=== PATIENT | female | born 1950 | race Caucasian/White ===

== ENCOUNTER 2017-02-11 15:18 | Emergency (ER) | payer SELFPAY ==
[2017-02-11 15:38] VITALS: BP 141/85; PULSE 74; RESP 16; TEMP 98.4; O2SAT 96
[2017-02-11] MEDS ORDERED: OXYCODONE/APAP 5/325 TAB PO ONE (16:34)
--- NOTE | 2017-02-11 16:36 | EDPHY ---
H & P Stated Complaint: Tripped running, sustained inj to R shoulder; CMS intact to R arm Time Seen by Provider: 02/11/17 16:21 HPI/ROS: HPI: This is a 66-year-old female presents with Chief Complaint: Right shoulder injury Location: Right shoulder Quality: Injury Duration: Approximately 3-5 hours ago Signs and Symptoms: No bleeding, no radiation, no numbness, no weakness, no tingling, no LOC, + decreased range of motion, + pain Timing: Sudden, worse with use and overhead activities Severity: 8 Context: Patient is right-hand dominant, was running today on a trail and accidentally tripped on a root that was across the trail and fell directly on her right shoulder. She felt immediate pain, nonradiating, 11/27, that worsened with use especially overhead activities. Patient denies hitting her head/LOC/ neck pain. She was able to run home several miles and after several hours and the pain did not resolve she decided to come to the emergency room for further evaluation. Patient reports that she is up-to-date on her tetanus. Modifying Factors: No [id number] medications tried or ice pack applied Comment: ROS: see HPI Constitutional: No fever, no chills, no weight loss Eyes: No blurred vision Respiratory: No shortness of breath, no cough Cardiovascular: No chest pain Gastrointestinal: No nausea, no vomiting no diarrhea Genitourinary: No dysuria Extremities: No myalgias Neurologic: No weakness, no numbness Skin: No rashes Hematologic: No bruising, no bleeding MEDICAL/SURGICAL/SOCIAL HISTORY: Medical history: HTN, ANXIETY; UTI's; kidney infection Surgical history: Denies Social history: Very active lifestyle. CONSTITUTIONAL: Pleasant elderly white female who appears younger than stated age, awake and alert, no obvious distress HEENT: Atraumatic and normocephalic, PERRL, EOMI. Tympanic membranes clear. Oropharynx clear, no exudate and moist pink mucosa. Airway patent. No lymphadenopathy. No meningismus. Cardiovascular: Normal S1/S2, regular rate, regular rhythm, without murmur rub or gallop. PULMONARY/CHEST: Symmetrical and nontender. Clear to auscultation bilaterally. Good air movement. No accessory muscle usage. ABDOMEN: Soft, nondistended, nontender, no rebound, no guarding, no peritoneal signs, no masses or organomegaly. No CVAT. EXTREMITIES: 2/2 pulses, RIGHT SHOULDER: Arc test abduction to 90, abduction to 35, horizontal flexion 100, horizontal extension to 20, deltoid strength 5 /5. No pain with Neer test/Frank test (impingement). Tenderness to palpation over AC joint and SA joint. No clavicle deformity. no deformities, no clubbing, no cyanosis or edema. NEUROLOGICAL: no focal neuro deficits. GCS 15. SKIN: Warm and dry, no erythema. no rash. Good capillary refill. Source: Patient Exam Limitations: No limitations - Personal History Current Tetanus Diphtheria and Acellular Pertussis (TDAP): Yes Tetanus Vaccine Date: 2008 - Medical/Surgical History Hx Asthma: No Hx Chronic Respiratory Disease: No Hx Diabetes: No Hx Cardiac Disease: No Hx Renal Disease: No Hx Cirrhosis: No Hx Alcoholism: No Hx HIV/AIDS: No Hx Splenectomy or Spleen Trauma: No Other PMH: HTN, ANXIETY; UTI's; kidney infection - Social History Smoking Status: Former smoker Constitutional: Initial Vital Signs Temperature (C) 36.9 C 02/11/17 15:25 Heart Rate 74 02/11/17 15:25 Respiratory Rate 16 02/11/17 15:25 Blood Pressure 141/85 H 02/11/17 15:25 O2 Sat (%) 96 02/11/17 15:25 O2 Delivery Mode Room Air Allergies/Adverse Reactions: No Known Allergies Allergy (Verified 02/11/17 15:38) Home Medications: Medication Instructions Recorded LORazepam [Ativan 0.5 mg (RX)] 0.5 mg PO DAILY PRN 10/23/12 Potassium Cl [Klor-Con 10 meq (RX)] 10 meq PO DAILY 10/23/12 Triamterene/Hctz 75/50 [Maxzide 1 tab PO DAILY 10/23/12 75-50 mg Tab (RX)] Hydrocodone/Acetaminophen [Vicodin 1 each PO Q4 PRN #12 tablet 02/11/17 5-300 mg Tablet] Medical Decision Making - Diagnostics Imaging Results: Imaging Impressions Shoulder X-Ray 02/11/17 15:38 Impression: Negative. No acute fracture or evidence of AC separation. Procedures: Procedure: Splint placement. A sling was applied by the Emergency Room traffic survey technician. After application of the sling I returned and re-examined the patient. The splint was adequately immobilizing the joint and distal to the splint the patient's circulation and sensation was intact. ED Course/Re-evaluation: Right shoulder x-ray, oral medication ordered Fall accidental in nature Right shoulder x-ray reviewed via PACs with attending and shows no acute fracture/dislocation/AC joint separation No signs of neurovascular compromise/tenting of skin/compartment syndrome/ extremities and joints examined above and below area of concern and are neurovascularly intact. Placed in sling, rice therapy, Ortho follow-up for evaluation for internal derangement Differential Diagnosis: ED shoulder injury differential includes but is not limited to clavicle fracture , humeral fracture, AC joint separation, rotator cuff injury, labral injury. Departure - Departure Disposition: Home, Routine, Self-Care Clinical Impression: Internal derangement of right shoulder Right shoulder injury Qualifiers: Encounter type: initial encounter Qualified Code(s): S49.91XA - Unspecified injury of right shoulder and upper arm, initial encounter Condition: Good Instructions: Rotator Cuff Injury (ED), Shoulder Sprain (ED) Additional Instructions: Please wear sling continuously except to shower and while sleeping until pain free or seen by Orthopedics for follow-up. Take Advil every 6-8 hours with food as needed for pain and inflammation. Take Vicodin every 4 hours as needed for severe breakthrough pain. Apply ice for 30 minutes at a time; 2-3 times per day for the next 1-2 days. Follow up with Orthopedics in 5-7 days at which time they will evaluate for internal derangement and recommend with you if conservative management versus further diagnostic imaging is indicated. The x-rays obtained in the emergency department today demonstrate no evidence of an obvious fracture. Sometimes fractures are not obvious on the initial set of x-rays performed in the ED. For this reason, you should have repeat x-rays performed in 7-10 days if you are having any pain exclude the possibility of an occult fracture. Referrals: Alfonzo Pandya MD [Medical Doctor] - As per Instructions Prescriptions: Hydrocodone/Acetaminophen [Vicodin 5-300 mg Tablet] 1 each PO Q4 PRN #12 tablet PRN Reason: Pain, Severe
== END 2017-02-11 17:29 | disposition home or self-care (01) ==
DX: S49.91XA Unspecified injury of right shoulder and upper arm, initial encounter (principal); M24.811 Other specific joint derangements of right shoulder, not elsewhere classified; I10 Essential (primary) hypertension; Z87.891 Personal history of nicotine dependence; W01.0XXA Fall on same level from slipping, tripping and stumbling without subsequent striking against object, initial encounter; Y99.8 Other external cause status; Y93.02 Activity, running

== ENCOUNTER 2018-06-24 12:11 | Emergency (ER) | payer OTHER ==
--- NOTE | 2018-06-24 12:30 | EDPHY ---
General Time Seen by Provider: 06/24/18 12:30 Narrative: CLINICAL IMPRESSION: Palpitations ASSESSMENT/PLAN: Patient is a 68-year-old female with a significant history of hypertension, anxiety and insomnia who presents to the emergency department with complaints of intermittent palpitations and generally feeling unwell. Patient was placed on a cardiac technician, an ECG was obtained which revealed prolonged QTC at 580, nonspecific ST changes without evidence of acute ischemia. Patient is afebrile , not toxic appearing and in no acute distress. Troponin negative at 0.02. CBC with no evidence of leukocytosis or anemia, magnesium within normal limits, TSH normal. There were no metabolic abnormalities or evidence of acute kidney injury. There was no evidence of arrhythmia, anemia, fever, medication side effect, toxidrome, thyrotoxicosis, dehydration, or hypoglycemia. Cardiology reviewed her ECG and on their findings QT was 400 milliseconds with a QTC of 453 milliseconds. Recommendation is to initiate metoprolol 12.5 mg twice daily , her 1st dose was given in the emergency department. She will follow up with Dr. Mancia tomorrow at 2:30 a.m. for further evaluation and management. Patient was reassured by her findings in the emergency department however understands that she may need additional testing to include Holter monitor. Conservative return precautions discussed-patient will return for recurrent palpitations or elevated heart rate, chest pain, shortness of breath, near- syncope, syncope or for any other concerning symptom. Patient verbalizes understanding she is in agreement with this plan. DIFFERENTIAL DX: Differential diagnosis including but not limited to ACS, pulmonary embolism, dysrhythmia, anemia, medication side effect, toxidrome, thyrotoxicosis, dehydration, hypoglycemia. ED COURSE: 1241: Case discussed with Dr. Feliz 1257: ECG reviewed by Dr. Feliz, QTC prolonged at 580, nonspecific ST changes. 1330: Cardiology paged. 1338: Case discussed with Brenden Avila CLE[employer] AND [employer] with [facility]. They recommend metoprolol 12.5 mg twice per day. She has been scheduled for a follow -up appointment tomorrow with Dr. Mancia at 2:30 p.m.. 1405: ECG reviewed with Brenden Ramachandran. The QT interval was measured by Cardiology and found to be 400 milliseconds, QTC corrected was 453 milliseconds. No findings to suggest prolonged QT on their evaluation. Still recommend metoprolol 12.5 twice daily with follow-up tomorrow. CHIEF COMPLAINT: Palpitations HPI: Patient is a 68-year-old female with a history of hypertension, anxiety and insomnia who presents to the emergency department with complaints of intermittent palpitations and racing heart over the last 8 months which is increasing in frequency as well as generally feeling unwell today. Patient reports over the last 8 months she has had several episodes of where her heart has been racing, she normally has a heart rate in the low 60s. Yesterday she had a sudden onset of palpitations and took her heart rate at 150, this lasted for approximately 6 hr, felt mildly dizzy while her heart rate was elevated. She denies ever experiencing near syncope or syncope during any of these episodes. She has not had any further palpitations or racing heart rate since that time. She woke up this morning just generally feeling unwell. She denies any chest pain, shortness of breath or abdominal pain. She has had no fever, recent upper respiratory symptoms or cough. Appetite has been normal, she denies any nausea or vomiting. She denies any urinary symptoms to include dysuria, hematuria or increased frequency. Bowel movements have been normal and regular. She denies any recent changes in her medications. She does endorse that she is under a significant amount of stress, her adult child lives at home with severe mental health disorders. Her episodes of palpitations and elevated heart rate have always preceded by stress. She is postmenopausal, denies any irregular or abnormal vaginal bleeding. PMH: Hypertension, anxiety, insomnia Family History: PAT-mother Social History: Former cigarette smoking, denies illicit drug use REVIEW OF SYSTEMS: All other systems negative Constitutional: No fever, no chills, appetite change. Eyes: No discharge, vision change ENT: No sore throat, congestion, ear pain. Cardiovascular: Palpitations. No chest pain. Respiratory: No cough, no shortness of breath. Gastrointestinal: No abdominal pain, no vomiting, diarrhea. Genitourinary: No hematuria, dysuria, flank pain, pelvic pain. Musculoskeletal: No back pain, joint swelling, joint pain, myalgias. Skin: No rashes, color change. Neurological: Weakness. No headache, dizziness. PHYSICAL EXAM: General Appearance: Well-appearing, no acute distress. HENT: Normocephalic, atraumatic. Bilateral external ears are normal. Bilateral tympanic membranes are normal with pearly carlin reflex. Nares are clear, mucosa is pink. Oropharynx is clear, uvula is midline. There is no tonsillar enlargement or exudate. The dentition is normal. Eyes: PERRLA, no acute vision change, nystagmus, swelling, discharge, pain or photosensitivity. Conjunctiva pink, no pallor or injection Neck: Supple, nontender, no lymphadenopathy, no midline pain, FROM, no meningismus. Respiratory: There are no retractions, lungs are clear to auscultation. Cardiac: Regular rate and rhythm- heart rate 74 on my exam, no murmurs or gallops. Gastrointestinal: Abdomen is soft, nontender, bowel sounds normal, no masses/ hernia, no rigidity, guarding or focal peritoneal findings. Neurological: Alert and oriented x 3, CN 2-12 grossly intact, normal gait no ataxia, DTR's intact, normal sensation and strength Skin: Warm, dry, no rashes, no nodules on palpation. Musculoskeletal: Extremities are symmetrical, full range of motion, no tenderness, deformity, swelling, or erythema. Psychiatric: Patient is oriented X 3, there is no agitation. MEDICAL DECISION MAKING: Patient was seen independently. Secondary supervising physician at time of evaluation was Dr. Feliz, he did not evaluate this patient. Diagnosis: Palpitations. New, requires workup Summary: See Assessment and Plan for summary of ED visit Clinical lab tests: ordered / reviewed. Independent visualization of images, tracing, or specimens: Yes. Decision to obtain medical records or history from someone other than the patient: No Review / Summarize previous medical records: Yes Discussed patient with another provider: Yes, Dr. Feliz Patient Progress: Stable, discharged. - Diagnostics Imaging Results: Imaging Impressions Chest X-Ray 06/24/18 12:39 Impression: Normal chest. - History Smoking Status: Former smoker - Objective Vital Signs: Initial Vital Signs Temperature (C) 36.7 C 06/24/18 12:13 Heart Rate 80 06/24/18 12:13 Respiratory Rate 16 06/24/18 12:13 Blood Pressure 126/79 H 06/24/18 12:13 O2 Sat (%) 97 06/24/18 12:13 O2 Delivery Mode Room Air Allergies/Adverse Reactions: No Known Allergies Allergy (Verified 06/24/18 12:13) Home Medications: Medication Instructions Recorded LORazepam [Ativan 0.5 mg (RX)] 0.5 mg PO DAILY PRN 10/23/12 Potassium Cl [Klor-Con 10 meq (RX)] 10 meq PO DAILY 10/23/12 Triamterene/Hctz 75/50 [Maxzide 1 tab PO DAILY 10/23/12 75-50 mg Tab (RX)] Hydrocodone/Acetaminophen [Vicodin 1 each PO Q4 PRN #12 tablet 02/11/17 5-300 mg Tablet] Metoprolol Tartrate 12.5 mg PO BID #20 tablet 06/24/18 Laboratory Results: Laboratory Results 06/24/18 12:22 06/24/18 12:22 06/24/18 06/24/18 06/24/18 12:47 12:22 12:22 WBC 5.17 10^3/uL 10^3/uL (3.80-9.50) RBC 4.74 10^6/uL 10^6/uL (4.18-5.33) Hgb 16.0 g/dL g/dL (12.6-16.3) Hct 43.8 % % (38.0-47.0) MCV 92.4 fL fL (81.5-99.8) MCH 33.8 pg pg (27.9-34.1) MCHC 36.5 g/dL g/dL (32.4-36.7) RDW 11.9 % % (11.5-15.2) Plt Count 270 10^3/uL 10^3/uL (150-400) MPV 10.5 fL fL (8.7-11.7) Neut % (Auto) 48.6 % % (39.3-74.2) Lymph % (Auto) 37.3 % % (15.0-45.0) [place] % (Auto) 7.5 % % (4.5-13.0) Eos % (Auto) 5.2 % % (0.6-7.6) Baso % (Auto) 1.0 % % (0.3-1.7) Nucleat RBC Rel Count 0.0 % % (0.0-0.2) Absolute Neuts (auto) 2.51 10^3/uL 10^3/uL (1.70-6.50) Absolute Lymphs (auto) 1.93 10^3/uL 10^3/uL (1.00-3.00) Absolute Monos (auto) 0.39 10^3/uL 10^3/uL (0.30-0.80) Absolute Eos (auto) 0.27 10^3/uL 10^3/uL (0.03-0.40) Absolute Basos (auto) 0.05 10^3/uL 10^3/uL (0.02-0.10) Absolute Nucleated RBC 0.00 10^3/uL 10^3/uL (0-0.01) Immature Gran % 0.4 % % (0.0-1.1) Immature Gran # 0.02 10^3/uL 10^3/uL (0.00-0.10) Sodium 139 mEq/L mEq/L (135-145) Potassium 3.6 mEq/L mEq/L (3.5-5.2) Chloride 101 mEq/L mEq/L (97-110) Carbon Dioxide 26 mEq/l mEq/l (22-31) Anion Gap 12 mEq/L mEq/L (6-14) BUN 20 mg/dL mg/dL (7-23) Creatinine 0.9 mg/dL mg/dL (0.6-1.0) Estimated GFR > 60 Glucose 96 mg/dL mg/dL (70-100) Calcium 9.8 mg/dL mg/dL (8.5-10.4) Magnesium 1.7 mg/dL mg/dL (1.6-2.3) POC Troponin I 0.02 ng/mL ng/mL (0.00-0.08) TSH 1.690 uIU/mL uIU/mL (0.465-4.680) Point of Care Test Results: Chemistry 03/07/19 12:47 POC Troponin I 0.02 ng/mL ng/mL (0.00-0.08) Departure - Departure Disposition: Home, Routine, Self-Care Clinical Impression: Intermittent palpitations Condition: Good Instructions: Heart Palpitations (ED) Additional Instructions: DISCHARGE INSTRUCTIONS FROM YOUR DOCTOR Thank you for visiting our emergency department today. Please keep in mind that discharge from the emergency department does not mean that there is nothing wrong - it simply means that we have not identified an emergency condition that requires further evaluation or treatment in the hospital. You should always plan to follow up with primary care for re-evaluation of your condition in the next 2-3 days. If you have been referred to a specialist, please call as soon as possible ( today or tomorrow) to schedule your follow up appointment at the appropriate time, please follow-up with Dr. Mancia tomorrow at 230 as discussed. Rest, healthy/regular sleep schedule, push fluids, healthy diet, regular exercise. Attempt to reduce stress. Pursue pleasurable, healthy activities. Surround yourself with loving, supportive, healthy friends and family. Avoid drugs and alcohol. Re-establish counseling to help work through issues and develop good coping and behavioral strategies for stress reduction and symptom control. Return for increased or unmanageable anxiety, severe depression, thoughts or plans to hurt yourself or someone else, for chest pain, shortness of breath, dizziness, fainting, rapid or irregular heart beat, sweating, vomiting, abdominal pain, back pain, tremor, seizure, mental status changes, or for any other new, worsening or worrisome symptoms. People present with illnesses and injuries in different ways, and it is always possible that we have missed something. You may always return for re-evaluation if symptoms worsen or if they are not improving or if you develop new/different symptoms. Again, thank you for choosing our emergency department. We hope that you feel better. Referrals: Sera Bowles MD [Primary Care Provider] - 2-3 days without fail Gavin Mancia MD [Medical Doctor] - 1 day without fail (230 pm at the [facility] [address] [address]) Prescriptions: Metoprolol Tartrate 12.5 mg PO BID #20 tablet
--- NOTE | 2018-06-24 12:55 | CPEKG ---
Test Reason : OPEN Blood Pressure : / mmHG Vent. Rate : 077 BPM Atrial Rate : 077 BPM P-R Int : 138 ms QRS Dur : 079 ms QT Int : 511 ms P-R-T Axes : 053 043 046 degrees QTc Int : 579 ms Sinus rhythm Borderline T abnormalities, anterior leads Prolonged QT interval Confirmed by Robert Feliz ([id number]) on 06/24/2018 12:54:56 PM Referred By: PHYSICIAN ED Confirmed By:Robert Feliz
[2018-06-24 13:04] LABS: PLATELET COUNT 270 10^3/uL (150-400)
[2018-06-24] MEDS ORDERED: METOPROLOL TARTRATE 25 MG TAB PO ONE (13:44)
[2018-06-24 14:17] VITALS: BP 139/93
== END 2018-06-24 14:47 | disposition home or self-care (01) ==
DX: R00.2 Palpitations (principal); I10 Essential (primary) hypertension
CPT/HCPCS: 84484-ER

== ENCOUNTER 2018-09-12 10:00 | Emergency (ER) | payer OTHER ==
[2018-09-12] MEDS ORDERED: LIDOCAINE 4%/MENTHOL 1% PATCH TD ONE (11:20)
--- NOTE | 2018-09-12 11:20 | EDPHY ---
H & P Stated Complaint: R lower back/hip pain x 2 days--poss from repetitive mvmt? Time Seen by Provider: 09/12/18 10:50 HPI/ROS: CHIEF COMPLAINT: Low back pain HISTORY OF PRESENT ILLNESS: 68-year-old female presents with low back pain. Onset of low back pain 3 days ago at work. She was standing at the [employer] and doing repetitive motions including twisting of her torso. The pain started while she was doing 1 of these twisting activities and gradually increased throughout her shift. Since then the pain has been constant and increases with movement. Taking ibuprofen with some relief. She is also moving and has been packing and lifting boxes. No numbness, weakness or radiation of pain. REVIEW OF SYSTEMS: complete 10 point ROS reviewed and is negative except for the noted elements in the HPI - Personal History Tetanus Vaccine Date: 2008 - Medical/Surgical History Hx Asthma: No Hx Chronic Respiratory Disease: No Hx Diabetes: No Hx Cardiac Disease: No Hx Renal Disease: No Hx Cirrhosis: No Hx Alcoholism: No Hx HIV/AIDS: No Hx Splenectomy or Spleen Trauma: No Other PMH: HTN, ANXIETY; UTI's; kidney infection - Social History Smoking Status: Never smoked Alcohol Use: Sober Drug Use: None - Physical Exam Exam: General Appearance: Alert, pleasant Eyes: Pupils equal and round, no conjunctival pallor or injection ENT, Mouth: Mucous membranes moist Neck: Normal inspection Respiratory: Lungs are clear to auscultation Cardiovascular: Regular rate and rhythm Gastrointestinal: Abdomen is soft and nontender Back: Point tenderness over the right lumbar area, no midline tenderness Neurological: A&O, motor 5/5, sensory grossly intact, normal gait Skin: Warm and dry, no rash Extremities: Negative straight leg raise Psychiatric: Mood and affect normal Constitutional: Initial Vital Signs Temperature (C) 36.5 C 09/12/18 10:07 Heart Rate 71 09/12/18 10:07 Respiratory Rate 16 09/12/18 10:07 Blood Pressure 139/78 H 09/12/18 10:07 O2 Sat (%) 97 09/12/18 10:07 O2 Delivery Mode Room Air Allergies/Adverse Reactions: No Known Allergies Allergy (Verified 06/24/18 12:13) Home Medications: Medication Instructions Recorded LORazepam [Ativan 0.5 mg (RX)] 0.5 mg PO DAILY PRN 10/23/12 Potassium Cl [Klor-Con 10 meq (RX)] 10 meq PO DAILY 10/23/12 Triamterene/Hctz 75/50 [Maxzide 1 tab PO DAILY 10/23/12 75-50 mg Tab (RX)] Hydrocodone/APAP 5/325 [Sycamore 1 - 2 tab PO Q4H PRN #10 tab 09/12/18 5/325] Medical Decision Making ED Course/Re-evaluation: This pt presents with low back strain. No worrisome features and exam unremarkable. A lidocaine patch was placed. Ibuprofen instructions given. Warning signs discussed. - Data Points Medications Given: Discontinued Medications Miscellaneous Medication (Icy Hot Lidocaine/Menthol 4%/1% Patch) 1 patch TD EDNOW ONE Stop: 09/12/18 11:21 Last Admin: 09/12/18 11:29 Dose: 1 patch Departure - Departure Disposition: Home, Routine, Self-Care Clinical Impression: Low back strain Qualifiers: Encounter type: initial encounter Qualified Code(s): S39.012A - Strain of muscle, fascia and tendon of lower back, initial encounter Condition: Good Instructions: Low Back Strain (ED) Additional Instructions: Ibuprofen 600 mg 3 times daily while the pain persists. Use a lidocaine patch as directed on the packaging. Avoid heavy lifting and bending. Referrals: Sera Bowles MD [Primary Care Provider] - As per Instructions Prescriptions: Hydrocodone/APAP 5/325 [Sycamore 5/325] 1 - 2 tab PO Q4H PRN #10 tab PRN Reason: Pain, Moderate
[2018-09-12 11:34] VITALS: BP 140/93
[2018-09-12] MEDS ORDERED: PATCH REMOVAL 1 EA PATCH TD SCH (21:00)
== END 2018-09-12 11:33 | disposition home or self-care (01) ==
DX: M54.5 Low back pain (principal); I10 Essential (primary) hypertension; F41.9 Anxiety disorder, unspecified; Z87.440 Personal history of urinary (tract) infections